=== PATIENT | male | born 1970 | race Caucasian/White ===

== ENCOUNTER 2020-05-07 13:36 | Outpatient (RCR) | payer OTHER ==
[~2020-05-07 13:36] MED LIST: CRUTCHES; PREDNISONE20 MG PO; PROAIR HFA0.09 MG/AC IH; ULTRAM 50MG TAB50 MG PO
== END 2020-08-05 | disposition home or self-care (01) ==
LOC: WSOH
DX: M65.4 Radial styloid tenosynovitis [de Quervain] (principal); Z98.890 Other specified postprocedural states; Y99.0 Civilian activity done for income or pay
CPT/HCPCS: 24091; A6549

== ENCOUNTER 2023-10-26 10:16 | Emergency (ER) | payer OTHER ==
[~2023-10-26] VITALS: Ht 172.7 cm; Wt 68.2 kg
[2023-10-26] MEDS ORDERED: MOBIC 7.5MG7.5 MG PO (11:00)
[2023-10-26 11:33] VITALS: BP 138/88; PULSE 107; TEMP 97.6
== END 2023-10-26 11:33 | disposition home or self-care (01) ==
LOC: COL.ER 10:16
DX: M25.571 Pain in right ankle and joints of right foot (principal); G89.29 Other chronic pain; F17.200 Nicotine dependence, unspecified, uncomplicated; Z87.828 Personal history of other (healed) physical injury and trauma; Z98.890 Other specified postprocedural states; Z88.5 Allergy status to narcotic agent